=== PATIENT | male | born 1975 | race Caucasian/White ===

== ENCOUNTER 2020-07-22 15:07 | Emergency (ER) | payer OTHER ==
[~2020-07-22] VITALS: Ht 170.2 cm; Wt 71.2 kg
[2020-07-22 15:13] VITALS: Ht 170.2 cm; Wt 71.2 kg
[2020-07-22 17:29] LABS: ALKALINE PHOSPHATASE 150 U/L (46-116); ALT/SGPT 61 U/L (16-63); AST/SGOT 182 U/L (15-37); BILIRUBIN TOTAL 6.18 mg/dL (0.20-1.00); CALCIUM 8.3 mg/dL (8.5-10.1); CARBON DIOXIDE 27.7 mmol/L (21-32); CHLORIDE SERUM 100 mmol/L (98-107); GFR1 > 60 mL/min; GLUCOSE SERUM 258 mg/dL (74-106); SODIUM SERUM 137 mmol/L (136-145); TOTAL PROTEIN, SERUM 7.6 g/dL (6.4-8.2)
[2020-07-22 17:30] LABS: ALBUMIN 3.1 g/dL (3.4-5.0)
[2020-07-22 17:31] LABS: POTASSIUM SERUM 2.8 mmol/L (3.5-5.1)
[2020-07-23 03:15] VITALS: BP 100/54
== END 2020-07-23 03:10 | disposition home or self-care (01) ==
LOC: ED 15:07
PROVIDERS: Emergency Medicine
DX: F10.129 Alcohol abuse with intoxication, unspecified (principal)
CPT/HCPCS: 82962

== ENCOUNTER 2020-08-03 08:37 | Inpatient (IN) | payer OTHER ==
[~2020-08-03] VITALS: Ht 170.2 cm; Wt 83.9 kg
[2020-08-03 09:02] VITALS: Ht 170.2 cm; Wt 83.9 kg
[2020-08-03 09:27] LABS: BASOPHIL % 0.2 % (0-2)
[2020-08-03 09:28] LABS: PLATELET COUNT 102 x10^3mcL (130-400)
[2020-08-03 09:46] LABS: ALKALINE PHOSPHATASE 146 U/L (46-116); ALT/SGPT 76 U/L (16-63); AST/SGOT 250 U/L (15-37); CALCIUM 7.7 mg/dL (8.5-10.1); CARBON DIOXIDE 29.1 mmol/L (21-32); CHLORIDE SERUM 96 mmol/L (98-107); CREATININE SERUM 0.9 mg/dL (0.7-1.3); GFR1 > 60 mL/min; GLUCOSE SERUM 145 mg/dL (74-106); SODIUM SERUM 136 mmol/L (136-145)
[2020-08-03 10:21] LABS: BILIRUBIN TOTAL 32.4 mg/dL (0.20-1.00); POTASSIUM SERUM 2.5 mmol/L (3.5-5.1)
[2020-08-03 10:56] LABS: CHOLESTEROL 23 mg/dL (<200)
[2020-08-03 11:08] LABS: ALBUMIN 2.4 g/dL (3.4-5.0); TOTAL PROTEIN, SERUM 6.5 g/dL (6.4-8.2)
[2020-08-03 16:19] LABS: UA SPECIFIC GRAVITY 1.015 (1.005-1.035); microscopic required? YES; urine erythrocyte TRACE (NEGATIVE)
[2020-08-03 16:28] LABS: AMPHETAMINE QUAL UR NONE DETECTED (See below)
[2020-08-03 16:34] LABS: CALCIUM 7.9 mg/dL (8.5-10.1); CARBON DIOXIDE 28.2 mmol/L (21-32); CHLORIDE SERUM 100 mmol/L (98-107); GFR1 > 60 mL/min; GLUCOSE SERUM 180 mg/dL (74-106); POTASSIUM SERUM 3.1 mmol/L (3.5-5.1); SODIUM SERUM 139 mmol/L (136-145)
[2020-08-04 04:47] LABS: BASOPHIL % 0.8 % (0-2)
[2020-08-04 05:07] LABS: ALKALINE PHOSPHATASE 144 U/L (46-116); ALT/SGPT 73 U/L (16-63); AST/SGOT 228 U/L (15-37); CALCIUM 7.4 mg/dL (8.5-10.1); CARBON DIOXIDE 30.2 mmol/L (21-32); CHLORIDE SERUM 103 mmol/L (98-107); CREATININE SERUM 0.9 mg/dL (0.7-1.3); GFR1 > 60 mL/min; GLUCOSE SERUM 212 mg/dL (74-106); MAGNESIUM 1.7 mg/dL (1.8-2.4); SODIUM SERUM 139 mmol/L (136-145); TOTAL PROTEIN, SERUM 6.2 g/dL (6.4-8.2); TRIGLYCERIDES 159 mg/dL (<150)
[2020-08-04 05:10] LABS: ALBUMIN 2.3 g/dL (3.4-5.0)
[2020-08-04 05:11] LABS: CHOLESTEROL 13 mg/dL (<200); CHOLESTEROL/HDL RATIO 0.9; HDL CHOLESTEROL 15 mg/dL (40-60); LIPASE 1584 IU/L (73-393)
[2020-08-04 05:13] LABS: BILIRUBIN TOTAL 34.6 mg/dL (0.20-1.00); POTASSIUM SERUM 2.7 mmol/L (3.5-5.1)
[2020-08-04 05:14] LABS: PLATELET COUNT 112 x10^3mcL (130-400); RED CELL DISTRIBUTION WIDTH 18.8 % (11.5-14.5)
[2020-08-04 12:22] VITALS: BP 128/83
[2020-08-04 15:35] VITALS: BP 130/87
[2020-08-04 19:50] VITALS: BP 158/117
[2020-08-05 00:15] VITALS: BP 166/49; BP 166/99
[2020-08-05 04:02] VITALS: BP 150/99
[2020-08-05 05:34] LABS: BASOPHIL % 0.5 % (0-2)
[2020-08-05 05:45] LABS: PLATELET COUNT 119 x10^3mcL (130-400); RED CELL DISTRIBUTION WIDTH 18.7 % (11.5-14.5)
[2020-08-05 05:59] LABS: ALKALINE PHOSPHATASE 137 U/L (46-116); ALT/SGPT 73 U/L (16-63); AST/SGOT 199 U/L (15-37); CALCIUM 7.7 mg/dL (8.5-10.1); CARBON DIOXIDE 23.1 mmol/L (21-32); CHLORIDE SERUM 110 mmol/L (98-107); GFR1 > 60 mL/min; GLUCOSE SERUM 223 mg/dL (74-106); LIPASE 1206 IU/L (73-393); MAGNESIUM 1.7 mg/dL (1.8-2.4); POTASSIUM SERUM 3.5 mmol/L (3.5-5.1); SODIUM SERUM 145 mmol/L (136-145); TOTAL PROTEIN, SERUM 6.2 g/dL (6.4-8.2)
[2020-08-05 06:16] LABS: BILIRUBIN TOTAL 35.46 mg/dL (0.20-1.00)
[2020-08-05 08:00] VITALS: BP 163/96
[2020-08-05 12:00] VITALS: BP 146/99
[2020-08-05 16:00] VITALS: BP 155/98
[2020-08-05 19:47] VITALS: BP 143/99
[2020-08-06] VITALS (7 sets, daily range): BP systolic 70–140; BP diastolic 35–813
[2020-08-06 07:54] LABS: PLATELET COUNT 158 x10^3mcL (130-400); RED CELL DISTRIBUTION WIDTH 19.8 % (11.5-14.5)
[2020-08-06 08:16] LABS: CALCIUM 7.6 mg/dL (8.5-10.1); CARBON DIOXIDE 20.8 mmol/L (21-32); CREATININE SERUM 1.4 mg/dL (0.7-1.3); MAGNESIUM 1.9 mg/dL (1.8-2.4); PHOSPHOROUS 1.6 mg/dL (2.5-4.9)
[2020-08-06 08:18] LABS: ALBUMIN 1.9 g/dL (3.4-5.0)
[2020-08-06 08:21] LABS: BILIRUBIN TOTAL 33.5 mg/dL (0.20-1.00)
[2020-08-06 12:52] LABS: TOTAL PROTEIN, SERUM 5.8 g/dL (6.4-8.2)
[2020-08-06 13:38] LABS: BAND NEUTROPHIL 2 % (0-10); SEGMENTED NEUTROPHILS 86 % (37-75)
[2020-08-06 13:39] LABS: MONOCYTE 6 % (0-7); PLATELET MORPHOLOGY LARGE PLATELET SEEN
[2020-08-06 13:57] LABS: rbc morphology (normal/abnorm) ABNORMAL (NORMAL)
[2020-08-07] VITALS (7 sets, daily range): BP systolic 47–132; BP diastolic 26–109
[2020-08-07 06:13] LABS: PLATELET COUNT 139 x10^3mcL (130-400)
[2020-08-07 12:25] LABS: BAND NEUTROPHIL 1 % (0-10); MONOCYTE 7 % (0-7); SEGMENTED NEUTROPHILS 81 % (37-75)
[2020-08-07 12:26] LABS: rbc morphology (normal/abnorm) NORMAL (NORMAL)
[2020-08-07 13:22] LABS: ALKALINE PHOSPHATASE 150 U/L (46-116); CALCIUM 6.9 mg/dL (8.5-10.1); CHLORIDE SERUM 115 mmol/L (98-107); CREATININE SERUM 3.9 mg/dL (0.7-1.3); GFR1 18 mL/min; GLUCOSE SERUM 98 mg/dL (74-106); MAGNESIUM 2.5 mg/dL (1.8-2.4); PHOSPHOROUS 8.1 mg/dL (2.5-4.9)
[2020-08-07 13:37] LABS: ALBUMIN 1.5 g/dL (3.4-5.0); TOTAL PROTEIN, SERUM 5.6 g/dL (6.4-8.2)
[2020-08-07 13:38] LABS: SODIUM SERUM 146 mmol/L (136-145)
[2020-08-07 13:44] LABS: CARBON DIOXIDE 9.4 mmol/L (21-32); POTASSIUM SERUM 6.3 mmol/L (3.5-5.1)
== END 2020-08-07 10:15 | disposition expired | DRG 280 ==
LOC: ED 08:37 → IC 11:50
PROVIDERS: Emergency Medicine; Hospitalist; Internal Medicine Gastroenterology; ADMIT Internal Medicine Pulmonary Disease; ATTEND Internal Medicine Pulmonary Disease
PROC: 0DJ08ZZ Inspection of Upper Intestinal Tract, Via Natural or Artificial Opening Endoscopic (ICD-10-PCS; principal; 2020-08-05 09:30)
PROC: 5A1935Z Respiratory Ventilation, Less than 24 Consecutive Hours (ICD-10-PCS; 2020-08-07)
PROC: 0BH17EZ Insertion of Endotracheal Airway into Trachea, Via Natural or Artificial Opening (ICD-10-PCS; 2020-08-07)
DX: K70.41 Alcoholic hepatic failure with coma (principal); K70.10 Alcoholic hepatitis without ascites; R57.0 Cardiogenic shock; I46.9 Cardiac arrest, cause unspecified; E83.39 Other disorders of phosphorus metabolism; K70.30 Alcoholic cirrhosis of liver without ascites; Z66 Do not resuscitate; E87.6 Hypokalemia; E83.42 Hypomagnesemia; Z59.0 Homelessness; Z79.899 Other long term (current) drug therapy; Z20.828 Contact with and (suspected) exposure to other viral communicable diseases
CPT/HCPCS: 43235; 82962; C9113; G0378; G0480; J0171; J0696; J1200; J1610; J2060; J2250; J2270; J2310; J2354; J2370; J2543; J3010; J3411; J3430; J3480; J3490; J7040; J7050; J7120; J7510